=== PATIENT | male | born 1990 | race Caucasian/White ===

== ENCOUNTER 2018-02-26 02:32 | Emergency (ER) | payer SELFPAY ==
[2018-02-26] MEDS ORDERED: KETOROLAC TROMETHAMINE 60 MG/2 ML SDV IM ONE (04:02)
[2018-02-26] MEDS ORDERED: PENICILLIN V POTASSIUM 500 MG TABLET PO ONE (04:02)
--- NOTE | 2018-02-26 04:09 | ER Document Report ---
ED General - General Chief Complaint: Toothache Stated Complaint: TOOTHACHE Time Seen by Provider: 02/26/18 03:58 Mode of Arrival: Ambulatory Information source: Patient Notes: 27-year-old male presents emergency department complaints of a toothache. Patient states it is going on for the last couple of days. Patient has had similar pain over the last couple of weeks. Patient has been seen in the emergency department previously and told that he needs to see a dentist. Patient states that he has an appointment with the dentist in May. Patient denies being on any current antibiotics. He has been taking Tylenol and Motrin for pain with minimal relief. Patient denies any difficulty breathing, difficulty swallowing, trismus, drooling, or fever. TRAVEL OUTSIDE OF THE [place] IN LAST 30 DAYS: No - HPI Onset: Last week Onset/Duration: Gradual Quality of pain: Throbbing Severity: Moderate Associated symptoms: None Exacerbated by: Denies Relieved by: Denies Similar symptoms previously: Yes Recently seen / treated by doctor: No - Related Data Allergies/Adverse Reactions: oranges Allergy (Uncoded 02/26/18 02:35) Past Medical History - General Information source: Patient - Social History Smoking Status: Current Every Day Smoker Family History: Reviewed & Not Pertinent Review of Systems - Review of Systems Constitutional: No symptoms reported EENT: Mouth pain Cardiovascular: No symptoms reported Respiratory: No symptoms reported Gastrointestinal: No symptoms reported Genitourinary: No symptoms reported Musculoskeletal: No symptoms reported Skin: No symptoms reported Hematologic/Lymphatic: No symptoms reported Neurological/Psychological: No symptoms reported -: Yes All other systems reviewed and negative Physical Exam - Vital signs Vitals: Temp Pulse Resp BP Pulse Ox 97.6 F 71 18 112/74 97 02/26/18 02:37 02/26/18 02:37 02/26/18 02:37 02/26/18 02:37 02/26/18 02:37 Interpretation: Normal - Notes Notes: PHYSICAL EXAMINATION: GENERAL: Well-appearing, well-nourished and in no acute distress. HEAD: Atraumatic, normocephalic. EYES: Pupils equal round and reactive to light, extraocular movements intact, sclera anicteric, conjunctiva are normal. ENT: Nares patent, oropharynx clear without exudates. Moist mucous membranes. Poor dentition. Multiple dental caries. Handling secretions. No trismus. No dental abscess. NECK: Normal range of motion, supple without lymphadenopathy LUNGS: Breath sounds clear to auscultation bilaterally and equal. No wheezes rales or rhonchi. HEART: Regular rate and rhythm without murmurs ABDOMEN: Soft, nontender, nondistended abdomen. No guarding, no rebound. No masses appreciated. Musculoskeletal: Normal range of motion, no pitting or edema. No cyanosis. NEUROLOGICAL: Cranial nerves grossly intact. Normal speech, normal gait. Normal sensory, motor exams PSYCH: Normal mood, normal affect. SKIN: Warm, Dry, normal turgor, no rashes or lesions noted. Course - Vital Signs Vital signs: Temp Pulse Resp BP Pulse Ox 97.6 F 71 18 112/74 97 02/26/18 02:37 02/26/18 02:37 02/26/18 02:37 02/26/18 02:37 02/26/18 02:37 Discharge - Discharge Clinical Impression: Pain, dental Condition: Good Disposition: HOME, SELF-CARE Instructions: Toothache ([facility]), Penicillin V K ([facility]) Prescriptions: Penicillin V Potassium [Penicillin Vk 500 mg Tablet] 500 mg PO BID #20 tablet Referrals: ALEIDA GALEANO MD [ACTIVE STAFF] - Follow up as needed
[2018-02-26 07:13] VITALS: BP 110/68
== END 2018-02-26 04:40 | disposition home or self-care (01) ==
LOC: ER 02:32
DX: K08.89 Other specified disorders of teeth and supporting structures (principal); F17.200 Nicotine dependence, unspecified, uncomplicated
CPT/HCPCS: 99282; 96372; J1885